=== PATIENT | male | born 1960 | race Caucasian/White ===

== ENCOUNTER 2018-02-23 11:09 | Emergency (ER) | payer BC, MEDICAID ==
--- NOTE | 2018-02-23 12:19 | XRAY Preliminary Report ---
Exam: XR SHOULDER 3 VIEW RT IMPRESSION: 1. Comminuted fracture of the scapular body, the neck and glenoid appear intact. Consider CT scapula/ shoulder without contrast for further evaluation. 2. Possible minimally displaced acute seventh rib fracture with additional multiple right-sided rib f ractures which appear old/healed, though not identified on 2011 CT. No evidence of pneumothorax. [facility] SITE ID: [id number]
--- NOTE | 2018-02-23 12:23 | XRAY Report ---
EXAM: RIGHT SHOULDER RADIOGRAPHY EXAM DATE: 02/23/2018 11:52 AM. CLINICAL HISTORY: Pain. COMPARISON: CT chest 01/18/2011, 12/27/2010. TECHNIQUE: 3 views. FINDINGS: Bones: There is a comminuted fracture of the right scapular body. The scapular neck and glenoid appea r intact. Joints: No dislocation. Mild degenerative changes present at the glenohumeral joint. Moderate degener ative change present at the acromioclavicular joint. Soft tissues: There are multiple right rib fractures which appear old and healed. A possible acute mi nimally displaced fracture of the posterior right seventh rib noted. No evidence of pneumothorax. IMPRESSION: 1. Comminuted fracture of the scapular body, the neck and glenoid appear intact. Consider CT scapula/ shoulder without contrast for further evaluation. 2. Possible minimally displaced acute seventh rib fracture with additional multiple right-sided rib f ractures which appear old/healed, though not identified on 2011 CT. No evidence of pneumothorax. [facility] Referring Provider Line: [phone] SITE ID: [id number]
[2018-02-23] MEDS ORDERED: oxyCODONE 5 MG TABLET PO STA (13:36)
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
[2018-02-23 15:02] VITALS: BP 134/84
== END 2018-02-23 15:34 | disposition home or self-care (01) ==
LOC: ED 11:09
DX: S42.111A Displaced fracture of body of scapula, right shoulder, initial encounter for closed fracture (principal); S22.31XA Fracture of one rib, right side, initial encounter for closed fracture; V28.0XXA Motorcycle driver injured in noncollision transport accident in nontraffic accident, initial encounter; Y93.I9 Activity, other involving external motion
CPT/HCPCS: 71046; 73030; 99283; A9270; 82565

== ENCOUNTER 2020-09-06 09:45 | Outpatient (CLI) | payer MEDICAID ==
[2020-09-06 15:32] LABS: BASOPHILS % (AUTO) 0.6 %; EOSINOPHILS # (AUTO) 0.1 10^3/uL (0.0-0.7); EOSINOPHILS % (AUTO) 1.3 %; HGB - HEMOGLOBIN 14.6 g/dL (14.0-18.0); LYMPHOCYTES # (AUTO) 1.8 10^3/uL (1.5-3.5); LYMPHOCYTES % (AUTO) 27.5 %; MEAN CORPUSCULAR HGB CONC 34.1 g/dL (32.0-36.0); MEAN CORPUSCULAR VOLUME 96.8 fL (80.0-94.0); MEAN PLATELET VOLUME 11.4 fL (7.4-11.4); MONOCYTES # (AUTO) 0.5 10^3/uL (0.0-1.0); MONOCYTES % (AUTO) 7.3 %; NEUTROPHILS # (AUTO) 4.2 10^3/uL (1.5-6.6); NEUTROPHILS % (AUTO) 62.9 %; PLT - PLATELET COUNT 202 10^3/uL (130-450); RED BLOOD COUNT 4.42 10^6/uL (4.70-6.10); RED CELL DISTRIBUTION WIDTH 12.4 % (12.0-15.0); WHITE BLOOD COUNT 6.7 x10^3/uL (4.8-10.8)
[2020-09-06 16:01] LABS: ALBUMIN 4.3 g/dL (3.2-5.5); ALBUMIN/GLOBULIN RATIO 1.6 (1.0-2.2); ALKALINE PHOSPHATASE 52 IU/L (42-121); ALT ALANINE AMINOTRANSFERASE 26 IU/L (10-60); AST ASPARTATE AMINOTRANSFERASE 25 IU/L (10-42); BUN - BLOOD UREA NITROGEN 13 mg/dL (6-20); CALCIUM 8.8 mg/dL (8.5-10.3); CARBON DIOXIDE - CO2 27 mmol/L (21-32); CHLORIDE 103 mmol/L (101-111); CHOL/HDL RATIO 6.6 (<5.0); CHOLESTEROL 190 mg/dL; CREATININE 0.9 mg/dL (0.6-1.2); GLUCOSE 106 mg/dL (70-100); HDL CHOLESTEROL 29 mg/dL; LDL CHOLESTEROL,CALCULATED 135 mg/dL; LDL/HDL RATIO 4.7 (<3.6); SODIUM 138 mmol/L (135-145); VLDL CHOLESTEROL 26 mg/dL
== END 2020-09-06 09:46 | disposition home or self-care (01) ==
LOC: LAB.S 09:45
PROVIDERS: ATTEND Physician Assistant
DX: Z00.00 Encounter for general adult medical examination without abnormal findings (principal); R53.83 Other fatigue
CPT/HCPCS: 36415; 80053; 80061; 83721; 84153; 84443; 85025

== ENCOUNTER 2020-09-15 12:32 | Outpatient (CLI) | payer MEDICAID ==
--- NOTE | 2020-09-15 14:51 | XRAY Report ---
PROCEDURE: Hip w/Pelvis 2-3V RT INDICATIONS: RT HIP JOINT PAIN TECHNIQUE: AP pelvis with lateral view(s) of the right hip(s). COMPARISON: None. FINDINGS: Bones: No fractures or dislocations. Pelvic ring appears intact. No suspicious bony lesions. Soft tissues: The visualized bowel gas pattern is normal. No suspicious soft tissue calcifications. IMPRESSION: This is a normal study. Source of asymmetric right-sided pain is not seen. Reviewed by: Niranjan Vazquez MD on 09/15/2020 2:50 PM PDT Approved by: Niranjan Vazquez MD on 09/15/2020 2:50 PM PDT Station ID: [id number]
== END 2020-09-15 12:33 | disposition home or self-care (01) ==
LOC: DI.S 12:32
PROVIDERS: ATTEND Physician Assistant
DX: M25.551 Pain in right hip (principal)

== ENCOUNTER 2020-10-25 07:34 | Day surgery (SDC) | payer MEDICAID ==
[2020-10-25] MEDS ORDERED: LACTATED RINGERS 1,000 ML IV ONE (08:00)
[2020-10-25] MEDS ORDERED: fentaNYL 250 MCG/5 ML VIAL IVP ONE (08:38)
[2020-10-25] MEDS ORDERED: MIDAZOLAM 2 MG/2 ML VIAL IVP ONE (08:38)
[2020-10-25] MEDS ORDERED: LACTATED RINGERS 500 ML IV ONE (09:32)
[2020-10-25 09:49] VITALS: BP 136/82
== END 2020-10-25 07:35 | disposition home or self-care (01) ==
LOC: SDS 07:34
PROVIDERS: ATTEND Internal Medicine Gastroenterology
PROC: 0DBN8ZZ Excision of Sigmoid Colon, Via Natural or Artificial Opening Endoscopic (ICD-10-PCS; principal; 2020-10-25 08:30)
DX: Z12.11 Encounter for screening for malignant neoplasm of colon (principal); K63.5 Polyp of colon; K62.1 Rectal polyp; K57.30 Diverticulosis of large intestine without perforation or abscess without bleeding; M54.9 Dorsalgia, unspecified; M25.559 Pain in unspecified hip; Z79.1 Long term (current) use of non-steroidal anti-inflammatories (NSAID)

== ENCOUNTER 2022-07-20 16:18 | Emergency (ER) | payer MEDICAID ==
--- OUTSIDE RECORDS SUMMARY | 2022-07-20 16:28 | EXTERNAL MEDICAL SUMMARY RPT | Continuity of Care Document ---
:1960 Author Organization [facility] Address [address] [place] [address] Phone Care Team Providers Name Role Phone Anup Anna Unavailable Unavailable Allergies No information. Encounters No information. Functional Status No information. Immunizations No information. Medications No information. Problems No information. Procedures date description facility [id number] Visit Code Hold [facility] [place] [id number] Visit Code Hold [facility] [place] [id number]+0000 EKG Office Complete [facility] [place] [id number]+0000 EKG Office Complete [facility] [place] Results/Labs No information. Social History date description facility [id number]+0000 Former smoker [facility] [place] [id number]+0000 Former smoker [facility] [place] Vital Signs date measurement value units [id number]+0000 BMI BMI 29.22 kg/m2 [id number]+0000 BP_diastolic BP_diastolic 86 mmHg [id number]+0000 BP_systolic BP_systolic 158 mmHg [id number]+0000 heart_rate heart_rate 56 /min [id number]+0000 height_metric height_metric 176.53 cm [id number]+0000 height_standard height_standard 69.5 in [id number]+0000 respiration_rate respiration_rate 16 /min [id number]+0000 temperature_metric temperature_metric 36.5 C [id number]+0000 temperature_standard temperature_standard 9 7.7 F [id number]+0000 weight_metric weight_metric 90.72 kg 50841061922080+0000 weight_standard weight_standard 200 lb [id number]+0000 BMI BMI 29.22 kg/m2 30913421949782+0000 BP_diastolic BP_diastolic 86 mm[H g] +0000 BP_systolic BP_systolic 158 mm[Hg] +0000 heart_rate heart_rate 56 /min +0000 height_metric height_metric 176.53 cm +0000 height_standard height_standard 69.5 in +0000 respiration_rate respiration_rate 16 /min +0000 temperature_metric temperature_metric 36.5 C +0000 temperature_standard temperature_standard 9 7.7 F +0000 weight_metric weight_metric 90.72 kg +0000 weight_standard weight_standard 200 lb
[2022-07-20 17:03] LABS: BASOPHILS % (AUTO) 0.4 %; EOSINOPHILS # (AUTO) 0.1 10^3/uL (0.0-0.7); EOSINOPHILS % (AUTO) 0.9 %; HCT - HEMATOCRIT 41.6 % (42.0-52.0); HGB - HEMOGLOBIN 14.8 g/dL (14.0-18.0); LYMPHOCYTES # (AUTO) 1.8 10^3/uL (1.5-3.5); LYMPHOCYTES % (AUTO) 26.7 %; MEAN CORPUSCULAR HEMOGLOBIN 32.5 pg (27.0-31.0); MEAN CORPUSCULAR HGB CONC 35.6 g/dL (32.0-36.0); MEAN CORPUSCULAR VOLUME 91.4 fL (80.0-94.0); MEAN PLATELET VOLUME 10.4 fL (7.4-11.4); MONOCYTES # (AUTO) 0.5 10^3/uL (0.0-1.0); NEUTROPHILS # (AUTO) 4.4 10^3/uL (1.5-6.6); NEUTROPHILS % (AUTO) 64.9 %; PLT - PLATELET COUNT 173 10^3/uL (130-450); RED BLOOD COUNT 4.55 10^6/uL (4.70-6.10); RED CELL DISTRIBUTION WIDTH 12.5 % (12.0-15.0); WHITE BLOOD COUNT 6.7 x10^3/uL (4.8-10.8)
--- NOTE | 2022-07-20 17:09 | ED Physician Documentation ---
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 He presents to the emergency department today with the chief complaint of feeling fatigued and lethargic. He is having a difficult time starting in the morning and takes nearly till noon before he is feeling almost normal. His indicates that he will walk across the room and become short of breath. The patient himself states that he has not had a decrease in his ability to perform his physical tasks or his usual exercises. He does admit to increased recovery time. He denies chest pain. Denies shortness of breath with exertion. He does find that he feels anxious and paces especially in the morning. He feels that if he is doing something the symptoms are improved. Review of Systems Constitutional: reports: Fatigue. denies: Fever, Chills, Myalgias, Weight Loss, Sweats Eyes: denies: Decreased vision Ears: denies: Ear pain Nose: denies: Rhinorrhea / runny nose, Congestion Throat: denies: Sore throat Cardiac: denies: Chest pain / pressure, Palpitations, Pedal edema, Calf pain Respiratory: reports: Dyspnea, Cough. denies: Wheezing GI: denies: Abdominal Pain, Abdominal Swelling, Nausea, Vomiting, Constipation, Diarrhea : denies: Dysuria, Frequency Skin: denies: Rash Musculoskeletal: denies: Neck pain, Back pain, Extremity pain Neurologic: denies: Generalized weakness, Focal weakness, Numbness, Difficulty speaking Psychiatric: reports: Anxiety. denies: Suicidal, Homicidal, Hallucinations, Delusions, Insomnia Endocrine: reports: Polydypsia, Polyuria PD PAST MEDICAL HISTORY - Past Medical History Cardiovascular: None Respiratory: None Endocrine/Autoimmune: None GI: None : None HEENT: None Psych: None Musculoskeletal: None Derm: None - Past Surgical History Past Surgical History: Yes Ortho: Other - Present Medications Home Medications: Ambulatory Orders Medication Instructions Recorded Confirmed Ibuprofen [Motrin] 400 mg PO Q6H PRN #30 tablet 02/23/18 Oxycodone HCl/Acetaminophen 1 each PO Q6HR PRN #15 tablet 02/23/18 [Percocet 5-325 mg Tablet] Azithromycin [Zithromax] 250 mg PO DAILY #6 tablet 07/20/22 - Allergies Allergies/Adverse Reactions: Allergies Allergy/AdvReac Type Severity Reaction Status Date / Time No Known Drug Allergies Allergy Verified 07/20/22 16:36 - Social History Does the pt smoke?: No Smoking Status: Never smoker Does the pt drink ETOH?: Yes - Immunizations Immunizations are current?: No Immunizations: No immun PD ED PE NORMAL - Vitals Vital signs reviewed: Yes (hypertensive ) - General General: Alert and oriented X 3, No acute distress, Well developed/nourished - HEENT HEENT: Atraumatic, PERRL, EOMI - Neck Neck: Supple, no meningeal sign, No bony TTP - Cardiac Cardiac: RRR, No murmur - Respiratory Respiratory: No respiratory distress, Clear bilaterally - Abdomen Abdomen: Normal bowel sounds, Soft, Non tender, Non distended, No organomegaly - Back Back: No CVA TTP, No spinal TTP - Derm Derm: Normal color, Warm and dry, No rash - Extremities Extremities: No deformity, No edema - Neuro Neuro: Alert and oriented 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, 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, No motor deficit, No sensory deficit, Normal speech Eye Opening: Spontaneous Motor: Obeys Commands Verbal: Oriented GCS Score: 15 - Psych Psych: Normal mood, Normal affect Results - Vitals Vitals: Vital Signs - 24 hr 07/20/22 16:31 Temperature 36.4 C L Heart Rate 69 Respiratory 13 Rate Blood Pressure 164/94 H O2 Saturation 99 Oxygen O2 Source Room air - Labs Labs: Laboratory Tests 07/20/22 07/20/22 16:53 16:53 WBC 6.7 RBC 4.55 L Hgb 14.8 Hct 41.6 L MCV 91.4 MCH 32.5 H MCHC 35.6 RDW 12.5 Plt Count 173 MPV 10.4 Neut # (Auto) 4.4 Lymph # (Auto) 1.8 [place] # (Auto) 0.5 Eos # (Auto) 0.1 Baso # (Auto) 0.0 Absolute Nucleated RBC 0.00 Nucleated RBC % 0.0 Sodium 136 Potassium 3.8 Chloride 102 Carbon Dioxide 26 Anion Gap 8.0 BUN 17 Creatinine 1.1 Estimated GFR (MDRD) 68 L Glucose 94 Calcium 8.9 Total Bilirubin 0.9 AST 17 ALT 23 Alkaline Phosphatase 49 Total Protein 6.7 Albumin 4.3 Globulin 2.4 Albumin/Globulin Ratio 1.8 Lipase 26 - Rads (name of study) 2view chest Radiology: Prelim report reviewed (Impression: Questionable developing infiltrate in right perihilar and infrahilar region. No pleural effusion or pneumothorax.), EMP read indepedently, See rad report Procedures - IVC sono (time) 1648 Bedside IVC sono: IVC measures (cm) (1.37), IVC collapsed c insp (cm) (complete), Dehydration (est 500ml deficit) PD MEDICAL DECISION MAKING - ED course Complexity details: reviewed results, re-evaluated patient, considered differential, d/w patient, d/w family ED course: Previously well 62-year-old male on no medications presents to the emergency department feeling fatigued with vague symptomatology. He does have a cough he does produce slight sputum. He has not had fever or or overt dyspnea. His blood counts and electrolytes are normal as is his volume. His chest x-ray demonstrates a subtle infiltrate in the right hilar region and we will treat him for atypical pneumonia. Here in the emergency department he is administered dexamethasone 10 mg orally, 1 g of Rocephin IM and we will E scribe some azithromycin to [facility] in [place]. Departure - Departure Disposition: 01 Home, Self Care Clinical Impression: Atypical pneumonia Condition: Stable Instructions: ED Pneumonia Adult, Pneumia Mycoplasma Follow-Up: Ivy Hebert ARNP [Primary Care Provider] - Prescriptions: Azithromycin [Zithromax] 250 mg PO DAILY #6 tablet Comments: Benny, today it looks like you have an atypical pneumonia in your chest. This will cause some fatigue and treatment of it should help. I have E scribed some azithromycin to the [facility] in [place]. Today we found you to be only minimally dehydrated. The medications you received in the ED were Rocephin (the painful shot), an antibiotic and dexamethasone a powerful steroid that reduces inflammation.
[2022-07-20 17:15] LABS: ALBUMIN 4.3 g/dL (3.2-5.5); ALBUMIN/GLOBULIN RATIO 1.8 (1.0-2.2); BILIRUBIN,TOTAL 0.9 mg/dL (0.2-1.0); CALCIUM 8.9 mg/dL (8.5-10.3); CREATININE 1.1 mg/dL (0.6-1.2); POTASSIUM 3.8 mmol/L (3.5-5.0); TOTAL PROTEIN 6.7 g/dL (6.7-8.2)
--- NOTE | 2022-07-20 17:24 | XRAY Report ---
PROCEDURE: Chest 2 View X-Ray INDICATIONS: soa TECHNIQUE: 2 view(s) of the chest. COMPARISON: None. FINDINGS: Surgical changes and devices: None. Lungs and pleura: No pleural effusions or pneumothorax. Increased bronchovascular markings in bilate ral hilar region are seen. Ill-defined opacity in right perihilar and infrahilar region is noted. Mediastinum: Mediastinal contours are normal. Heart size is normal. Bones and chest wall: No suspicious bony abnormalities. Soft tissues appear unremarkable. IMPRESSION: Questionable developing infiltrate in right perihilar and infrahilar region. No pleural e ffusion or pneumothorax. Reviewed by: Timoteo Osorio MD on 07/20/2022 5:23 PM PDT Approved by: Timoteo Osorio MD on 07/20/2022 5:23 PM PDT Station ID: [id number]
[2022-07-20] MEDS ORDERED: DEXAMETHASONE 10 MG/ML VIAL PO STA (17:46)
[2022-07-20] MEDS ORDERED: cefTRIAXone 1 GM VIAL IM STA (17:46)
[2022-07-20] MEDS ORDERED: CHERRY SYRUP 10 ML UDC PO ONE (17:46)
[2022-07-20] MEDS ORDERED: LIDOCAINE 1% 2 ML VIAL MC ONE (17:46)
[2022-07-20 18:20] VITALS: BP 165/89
== END 2022-07-20 18:20 | disposition home or self-care (01) ==
LOC: ED 16:18
DX: J18.9 Pneumonia, unspecified organism (principal); F41.9 Anxiety disorder, unspecified
CPT/HCPCS: 36415; 71046; 80053; 83690; 85025; 96372; 99284; A9270

== ENCOUNTER 2024-07-20 22:11 | Emergency (ER) | payer MEDICAID, MEDICARE ==
[2024-07-20 23:06] LABS: BASOPHILS % (AUTO) 0.5 %; EOSINOPHILS # (AUTO) 0.1 10^3/uL (0.0-0.7); EOSINOPHILS % (AUTO) 1.3 %; HCT - HEMATOCRIT 44.7 % (42.0-52.0); HGB - HEMOGLOBIN 15.2 g/dL (14.0-18.0); MEAN CORPUSCULAR HEMOGLOBIN 31.7 pg (27.0-31.0); MEAN CORPUSCULAR VOLUME 93.1 fL (80.0-94.0); MEAN PLATELET VOLUME 10.5 fL (7.4-11.4); MONOCYTES # (AUTO) 0.5 10^3/uL (0.0-1.0); MONOCYTES % (AUTO) 7.3 %; NEUTROPHILS # (AUTO) 3.7 10^3/uL (1.5-6.6); NEUTROPHILS % (AUTO) 58.7 %; PLT - PLATELET COUNT 174 10^3/uL (130-450); RED CELL DISTRIBUTION WIDTH 12.3 % (12.0-15.0); WHITE BLOOD COUNT 6.3 x10^3/uL (4.8-10.8)
[2024-07-20 23:10] VITALS: O2SAT 96
[2024-07-20 23:28] LABS: TROPONIN I HIGH SENSITIVITY 7.4 ng/L (2.3-19.7)
[2024-07-20 23:40] LABS: ALBUMIN 4.4 g/dL (3.2-5.5); ALBUMIN/GLOBULIN RATIO 1.9 (1.0-2.2); ALKALINE PHOSPHATASE 59 IU/L (42-121); ALT ALANINE AMINOTRANSFERASE 17 IU/L (10-60); AST ASPARTATE AMINOTRANSFERASE 16 IU/L (10-42); BILIRUBIN,TOTAL 0.9 mg/dL (0.2-1.0); BUN - BLOOD UREA NITROGEN 12 mg/dL (6-20); CALCIUM 9.5 mg/dL (8.5-10.3); CARBON DIOXIDE - CO2 25 mmol/L (21-32); CHLORIDE 105 mmol/L (101-111); CREATININE 1.1 mg/dL (0.6-1.3); GFR - MDRD 67 (>89); GLUCOSE 100 mg/dL (74-104); POTASSIUM 3.9 mmol/L (3.5-4.5); SODIUM 139 mmol/L (135-145); TOTAL PROTEIN 6.7 g/dL (6.4-8.9)
--- NOTE | 2024-07-20 23:43 | ED Physician Documentation ---
History of Present Illness - Stated complaint Stated Complaint: HIGH BP - Chief complaint Chief Complaint: Cardiac - History obtained from History obtained from: Patient, Family () - Additonal information Additional information: 64-year-old man with no known past medical history presents with a couple of days of restlessness, feeling anxious, with improvement when he moves around regularly, high blood pressure readings at home. Patient denies any recent stressors but states he had similar symptoms 2 years ago and was diagnosed with walking pneumonia. denies cough, soa, fever, sick contacts. PD PAST MEDICAL HISTORY - Past Medical History Cardiovascular: None Respiratory: None Endocrine/Autoimmune: None GI: None : None HEENT: None Psych: None Musculoskeletal: None Derm: None - Past Surgical History Past Surgical History: Yes Ortho: Other - Present Medications Home Medications: Ambulatory Orders Medication Instructions Recorded Confirmed Ibuprofen [Motrin] 400 mg PO Q6H PRN #30 tablet 02/23/18 Oxycodone HCl/Acetaminophen 1 each PO Q6HR PRN #15 tablet 02/23/18 [Percocet 5-325 mg Tablet] Azithromycin [Zithromax] 250 mg PO DAILY #6 tablet 07/20/22 Amlodipine Besylate 2.5 mg PO QDAC #30 tab 07/20/24 - Allergies Allergies/Adverse Reactions: Allergies Allergy/AdvReac Type Severity Reaction Status Date / Time No Known Drug Allergies Allergy Verified 07/20/24 22:34 - Social History Does the pt smoke?: No Smoking Status: Never smoker Does the pt drink ETOH?: Yes Does the pt have substance abuse?: Yes Substance Use and Type: Marijuana - Immunizations Immunizations are current?: No Immunizations: No immun - POLST Patient has POLST: No PD ED PE NORMAL - Vitals Vital signs reviewed: Yes - General General: Alert and oriented X 3, No acute distress, Well developed/nourished - HEENT HEENT: Atraumatic, PERRL, EOMI - Neck Neck: Supple, no meningeal sign - Cardiac Cardiac: RRR - Respiratory Respiratory: No respiratory distress, Clear bilaterally - Abdomen Abdomen: Non tender, Non distended - Derm Derm: Normal color, Warm and dry - Extremities Extremities: No deformity - Neuro Neuro: No motor deficit, No sensory deficit - Psych Psych: Normal mood, Normal affect Results - Vitals Vitals: Vital Signs - 24 hr 09/12/1207/20/24 07/20/24 22:23 22:58 23:40 Temperature 36.7 C Heart Rate 54 L 54 L 59 L Respiratory 22 18 14 Rate Blood Pressure 183/83 H 178/84 H 149/94 H O2 Saturation 100 96 96 Oxygen O2 Source Room air - EKG (time done) 8 EKG releavant findings:: EKG personally interpreted by author of this note. Relevant findings are: Rate: Rate (enter#) (55) Rhythm: NSR [place]: Normal Intervals: Normal [place] QRS: Normal Ischemia: Normal ST segments - Labs Labs: Laboratory Tests 07/20/24 07/20/24 22:55 22:55 WBC 6.3 RBC 4.80 Hgb 15.2 Hct 44.7 MCV 93.1 MCH 31.7 H MCHC 34.0 RDW 12.3 Plt Count 174 MPV 10.5 Neut # (Auto) 3.7 Lymph # (Auto) 2.0 [place] # (Auto) 0.5 Eos # (Auto) 0.1 Baso # (Auto) 0.0 Absolute Nucleated RBC 0.00 Nucleated RBC % 0.0 Sodium 139 Potassium 3.9 Chloride 105 Carbon Dioxide 25 Anion Gap 9.0 BUN 12 Creatinine 1.1 Estimated GFR (MDRD) 67 L Glucose 100 Calcium 9.5 Total Bilirubin 0.9 AST 16 ALT 17 Alkaline Phosphatase 59 Troponin I High Sens 7.4 Total Protein 6.7 Albumin 4.4 Globulin 2.3 Albumin/Globulin Ratio 1.9 Lipase < 10 L PD Medical Decision Making - ED course ED course: 64yM p/w [place], chest heaviness, and sensation of "feeling closed-end" for the past couple of weeks, worsening today with high blood pressure reading at home. His pressure was again elevated in the emergency department and upon chart review he had a high blood pressure reading upon last visit in 2021. Offered antihypertensive medication prescription and this was accepted. workup otherwise benign. He is in process of getting a primary care provider. Referral list provided. Return precautions given. Departure - Departure Disposition: Home, Self Care Clinical Impression: High blood pressure Condition: Stable Instructions: Hypertension Control Prescriptions: Amlodipine Besylate 2.5 mg PO QDAC #30 tab Comments: You were seen in the emergency department for medical evaluation and found to have high blood pressure. Medication was sent electronically to [facility] in [place]. Please follow-up with a primary care provider (referral list provided) and return to the emergency department if you have any new or worsening symptoms or other concerns. Forms: PCP List
--- NOTE | 2024-07-20 23:44 | XRAY Report ---
PROCEDURE: Chest 1V INDICATIONS: Chest pain TECHNIQUE: One view of the chest was acquired. COMPARISON: 07/20/2022 FINDINGS: Surgical changes and devices: None. Lungs and pleura: No pleural effusions or pneumothorax. Lungs are clear. Mediastinum: Mediastinal contours appear normal. Heart size is normal. Bones and chest wall: No suspicious bony lesions. Deformity of multiple remote, healed right rib fr actures. Overlying soft tissues appear unremarkable. IMPRESSION: No acute cardiopulmonary process. Reviewed by: Temitope Bueno MD on 07/20/2024 11:43 PM PDT Approved by: Temitope Bueno MD on 07/20/2024 11:43 PM PDT Station ID: [id number]
[2024-07-20 23:50] LABS: LIPASE < 10 U/L (11-82)
[2024-07-21 00:09] VITALS: BP 151/94
== END 2024-07-21 00:07 | disposition home or self-care (01) ==
LOC: ED 22:11
DX: R03.0 Elevated blood-pressure reading, without diagnosis of hypertension (principal); R45.1 Restlessness and agitation
CPT/HCPCS: 36415; 80053; 83690; 84484; 85025; 93005; 99284